=== PATIENT | female | born 1955 | race Caucasian/White ===

== ENCOUNTER → 2017-08-10 | Outpatient (CLI) | payer OTHER ==
[2017-08-10 12:14] LABS: EOS # 0.2 (0.04-0.40); EOS % 4.3 % (1.0-5.0); HEMATOCRIT 42.9 % (37.0-47.0); HEMOGLOBIN 14.1 g/dL (12.5-16.0); LYMPH# 1.4 (1.50-4.00); MEAN CELL VOLUME 93 fl (78-100); MEAN CORPUSCULAR HEMOGLOBIN 31 pg (27-31); MEAN CORPUSCULAR HGB CONC 33 g/dL (33-37); MONO # 0.4 (0.20-0.80); NEU # 2.4 (1.40-6.50); PLATELET COUNT 199 K/mm3 (130-400); RED BLOOD COUNT 4.61 M/mm3 (4.10-5.30); RED CELL DISTRIBUTION WIDTH 12.7 % (11.5-14.5); WHITE BLOOD COUNT 4.4 K/mm3 (4.8-10.8)
[2017-08-10 12:30] LABS: ALBUMIN 4.5 g/dL (3.5-5.0); BUN/CREATININE RATIO 16.3 (6.0-26.0); CALCIUM 9.4 mg/dL (8.4-10.2); POTASSIUM 4.3 mmol/L (3.6-5.0); TOTAL BILIRUBIN 0.5 mg/dL (0.2-1.3); TOTAL PROTEIN 7.7 g/dL (6.3-8.2)
== END ==
LOC: LAB 11:57
PROVIDERS: Nurse Practitioner Family
DX: Z01.419 Encounter for gynecological examination (general) (routine) without abnormal findings (principal); E78.5 Hyperlipidemia, unspecified; J45.909 Unspecified asthma, uncomplicated; M81.0 Age-related osteoporosis without current pathological fracture

== ENCOUNTER → 2017-08-28 | Day surgery (SDC) | payer SELFPAY | LOC: MSO 07:29 | DX: Z12.11 Encounter for screening for malignant neoplasm of colon (principal); K57.30 Diverticulosis of large intestine without perforation or abscess without bleeding | CPT/HCPCS: 00812; J2704; J7120 ==

== ENCOUNTER → 2017-08-30 | Outpatient (CLI) | payer SELFPAY | LOC: MAMMO 10:45 | DX: Z12.31 Encounter for screening mammogram for malignant neoplasm of breast (principal); M81.0 Age-related osteoporosis without current pathological fracture; E78.5 Hyperlipidemia, unspecified; Z78.0 Asymptomatic menopausal state ==

== ENCOUNTER → 2019-12-31 | Outpatient (CLI) | payer SELFPAY | LOC: MAMMO 13:00 | DX: Z00.00 Encounter for general adult medical examination without abnormal findings (principal); Z12.31 Encounter for screening mammogram for malignant neoplasm of breast ==

== ENCOUNTER → 2020-11-03 | Outpatient (CLI) | payer BC ==
[2020-11-03 09:14] LABS: BASO # 0.02 (0.02-0.10); EOS # 0.11 (0.04-0.40); EOS % 2.8 % (1.0-5.0); HEMATOCRIT 42.7 % (37.0-47.0); HEMOGLOBIN 14.1 g/dL (12.5-16.0); LYMPH# 1.15 (1.50-4.00); MEAN CELL VOLUME 93 fl (78-100); MEAN CORPUSCULAR HEMOGLOBIN 31 pg (27-31); MEAN CORPUSCULAR HGB CONC 33 g/dL (33-37); MEAN PLATELET VOLUME 11.6 fl (7.4-10.4); MONO # 0.39 (0.20-0.80); PLATELET COUNT 198 K/mm3 (130-400); RED BLOOD COUNT 4.58 M/mm3 (4.10-5.30); RED CELL DISTRIBUTION WIDTH 12.3 % (11.5-14.5); WHITE BLOOD COUNT 3.9 K/mm3 (4.8-10.8)
[2020-11-03 09:30] LABS: ALBUMIN 4.3 g/dL (3.4-4.8); POTASSIUM 4.4 mmol/L (3.5-5.1)
[2020-11-03 09:31] LABS: CALCIUM 10.3 mg/dL (8.3-10.5)
[2020-11-03 09:32] LABS: TOTAL PROTEIN 6.9 g/dL (6.2-8.1)
[2020-11-03 09:34] LABS: TOTAL BILIRUBIN 0.5 mg/dL (0.2-1.2)
== END ==
LOC: LAB 09:01
PROVIDERS: Physician Assistant
DX: Z00.00 Encounter for general adult medical examination without abnormal findings (principal); Z13.29 Encounter for screening for other suspected endocrine disorder; E78.5 Hyperlipidemia, unspecified; M81.0 Age-related osteoporosis without current pathological fracture

== ENCOUNTER → 2021-01-05 | Outpatient (CLI) | payer BC | LOC: MAMMO 14:30 | DX: Z12.31 Encounter for screening mammogram for malignant neoplasm of breast (principal); Z13.820 Encounter for screening for osteoporosis; M81.0 Age-related osteoporosis without current pathological fracture ==

== ENCOUNTER 2021-04-17 10:59 | Emergency (ER) | payer SELFPAY ==
[2021-04-17 11:04] VITALS: BP 133/76
[2021-04-17 12:08] LABS: BASO # 0.02 K/mm3 (0.02-0.10); EOS # 0.04 K/mm3 (0.04-0.40); EOS % 0.6 % (1.0-5.0); HEMATOCRIT 40.3 % (37.0-47.0); HEMOGLOBIN 13.4 g/dL (12.5-16.0); LYMPH# 0.85 K/mm3 (1.50-4.00); MEAN CELL VOLUME 94 fl (78-100); MEAN CORPUSCULAR HEMOGLOBIN 31 pg (27-31); MEAN CORPUSCULAR HGB CONC 33 g/dL (33-37); MEAN PLATELET VOLUME 12.1 fl (7.4-10.4); MONO # 0.34 K/mm3 (0.20-0.80); NEU # 5.76 K/mm3 (1.40-6.50); PLATELET COUNT 218 K/mm3 (130-400); RED CELL DISTRIBUTION WIDTH 12.4 % (11.5-14.5)
[2021-04-17 12:10] LABS: ALBUMIN 4.6 g/dL (3.4-4.8)
[2021-04-17 12:11] LABS: CALCIUM 10.4 mg/dL (8.3-10.5)
[2021-04-17 12:13] LABS: TOTAL PROTEIN 6.7 g/dL (6.2-8.1)
[2021-04-17 12:14] LABS: TOTAL BILIRUBIN 0.5 mg/dL (0.2-1.2)
== END 2021-04-17 12:47 | disposition home or self-care (01) ==
LOC: ED 10:59
PROVIDERS: Family Medicine
DX: K21.9 Gastro-esophageal reflux disease without esophagitis (principal); Z91.040 Latex allergy status

== ENCOUNTER → 2023-10-04 | Outpatient (CLI) | payer MEDICARE ==
[2023-10-04 11:33] LABS: BASO # 0.02 K/mm3 (0.02-0.10); EOS # 0.25 K/mm3 (0.04-0.40); HEMATOCRIT 44.1 % (37.0-47.0); HEMOGLOBIN 14.5 g/dL (12.5-16.0); LYMPH# 1.14 K/mm3 (1.50-4.00); MEAN CELL VOLUME 94 fl (78-100); MEAN CORPUSCULAR HEMOGLOBIN 31 pg (27-31); MEAN CORPUSCULAR HGB CONC 33 g/dL (33-37); MEAN PLATELET VOLUME 12.2 fl (7.4-10.4); MONO # 0.41 K/mm3 (0.20-0.80); NEU # 3.19 K/mm3 (1.40-6.50); PLATELET COUNT 187 K/mm3 (130-400); RED CELL DISTRIBUTION WIDTH 12.2 % (11.5-14.5)
[2023-10-04 11:50] LABS: SODIUM 140 mmol/L (136-145)
[2023-10-04 11:51] LABS: ALBUMIN 4.8 g/dL (3.4-4.8)
[2023-10-04 11:52] LABS: CALCIUM 10.8 mg/dL (8.3-10.5)
[2023-10-04 11:53] LABS: GLUCOSE 98 mg/dL (65-105); TOTAL PROTEIN 7.3 g/dL (6.2-8.1)
[2023-10-04 11:54] LABS: CARBON DIOXIDE 24 mmol/L (23-31)
[2023-10-04 11:55] LABS: TOTAL BILIRUBIN 0.4 mg/dL (0.2-1.2)
[2023-10-04 11:58] LABS: AST-SGOT 20 U/L (5-34)
[2023-10-04 12:00] LABS: ALT/SGPT 17 U/L (0-55)
[2023-10-04 12:01] LABS: LIPASE 37 U/L (8-78)
[2023-10-05 00:38] LABS: HEPATITIS C VIRUS ANTIBODY Negative (Nonreactiv)
== END ==
LOC: LAB 11:19
PROVIDERS: Physician Assistant
DX: Z13.1 Encounter for screening for diabetes mellitus (principal); Z13.29 Encounter for screening for other suspected endocrine disorder; Z11.59 Encounter for screening for other viral diseases; M81.0 Age-related osteoporosis without current pathological fracture; E78.5 Hyperlipidemia, unspecified; R10.11 Right upper quadrant pain

== ENCOUNTER → 2023-10-17 | Outpatient (CLI) | payer MEDICARE | LOC: MAMMO 12:58 | DX: Z12.31 Encounter for screening mammogram for malignant neoplasm of breast (principal) ==

== ENCOUNTER → 2024-03-11 | Outpatient (CLI) | payer MEDICARE | LOC: MAMMO 11:00 → RAD 11:09 | DX: Z13.820 Encounter for screening for osteoporosis (principal); M81.0 Age-related osteoporosis without current pathological fracture ==